=== PATIENT | female | born 1975 | race Hispanic/Latino ===

== ENCOUNTER → 2017-11-29 | Outpatient (CLI) | payer MEDICARE ==
[~2017-11-29] MED LIST: ACET-2247 PO; ATOR20TA65 PO; Aspirin PO; FERR324T10 PO; METF500T6 PO; OXYC5 PO; RANI300T4 PO
== END | disposition home or self-care (01) ==
LOC: RAH 11:04
PROVIDERS: ATTEND Orthopaedic Surgery
DX: M25.552 Pain in left hip (principal); Z96.642 Presence of left artificial hip joint
CPT/HCPCS: 73700

== ENCOUNTER → 2018-07-12 | Outpatient (CLI) | payer MEDICARE ==
[~2018-07-12] MED LIST changes: +METF-444 PO; -METF500T6 PO
== END | disposition home or self-care (01) ==
LOC: RAH 09:51
PROVIDERS: ATTEND Obstetrics & Gynecology
DX: Z12.31 Encounter for screening mammogram for malignant neoplasm of breast (principal)
CPT/HCPCS: 77067

== ENCOUNTER 2019-07-13 12:00 | Inpatient (IN) | payer MEDICARE ==
[~2019-07-13] VITALS: Ht 170.2 cm; Wt 98.0 kg
[2019-07-13 11:10] VITALS: BP 111/62
[2019-07-13 11:54] LABS: BASOPHILS % (AUTO) 0.6 % (0.0-5.0); EOSINOPHILS % (AUTO) 2.8 % (0.0-8.0); HEMATOCRIT 33.1 % (36-48); LYMPHOCYTES % (AUTO) 28.2 % (21.0-51.0); MEAN CORPUSCULAR HEMOGLOBIN 24.9 pg (27.0-33.0); MEAN CORPUSCULAR HGB CONC 32.7 g/dL (32.0-36.0); MEAN CORPUSCULAR VOLUME 76.1 fL (79-99); MONOCYTES % (AUTO) 6.8 % (3.0-13.0); NEUTROPHILS % (AUTO) 61.6 % (40.0-77.0); PLATELET COUNT (AUTO) 132 K/uL (130-400); RED BLOOD CELL COUNT(AUTO) 4.35 MIL/uL (4.00-5.50); RED CELL DISTRIBUTION WIDTH 15.2 % (11.0-15.5); WHITE BLOOD COUNT (AUTO) 7.1 K/uL (4.8-10.8)
[2019-07-13 11:54] LABS: APPEARANCE,URINE Clear (CLEAR); BILIRUBIN,URINE Negative (NEGATIVE); COLOR,URINE Yellow (YELLOW); GLUCOSE, URINE (UA) Negative (NEGATIVE); KETONES,URINE Negative (NEGATIVE); LEUKOCYTE ESTERASE ,URINE Negative (NEGATIVE); NITRATE,URINE Negative (NEGATIVE); OCCULT BLOOD,URINE Negative (NEGATIVE); PROTEIN,URINE Negative (NEGATIVE)
--- NOTE | 2019-07-13 12:40 | NUR ---
RE: PT TAKING NAPROXEN CALLED DR SEE OFFICE AND SPOKE WITH KHALIF. INFORMED HER THAT PATIENT IS STILL TAKING NAPROXEN AND PROCEDURE IS SCHEDULED FOR TUESDAY. PER KHALIF, SHE WILL INFORM THE NURSE (PAPI) AND SHE WILL CALL US.
[2019-07-13] MEDS ORDERED: LISI2.5T2 PO (12:51)
[2019-07-13] MEDS ORDERED: NAPR-337 PO (12:51)
[2019-07-13] MEDS ORDERED: OLOP2.5D6 OP (12:51)
[2019-07-13] MEDS ORDERED: tylenol arthritis PO (12:51)
[2019-07-13] MEDS ORDERED: OMEP40CA13 PO (12:51)
[2019-07-13] MEDS ORDERED: FLUT16H NASAL (12:51)
[2019-07-13] MEDS ORDERED: METF-526 PO (12:51)
[2019-07-13] MEDS ORDERED: SIMV40TA59 PO (12:51)
--- NOTE | 2019-07-13 13:30 | NUR ---
NAPROXEN PER DR SEE NURSE (PAPI), HAVE PATIENT STOP TAKING NAPROXEN AND WILL PROCEED WITH SCHEDULED PROCEDURE ON TUESDAY. DR SEE AWARE PATIENT TOOK NAPROXEN TODAY.
--- NOTE | 2019-07-13 17:58 | NUR ---
LABS INFORMED DR. SEE OF ABNORMAL H/H. ORDERS RECEIVED TO HAVE TYPE/SCREEN DRAWN ON DAY OF PROCEDURE.
[2019-07-16] VITALS (20 sets, daily range): BP systolic 102–125; BP diastolic 56–85
[2019-07-16] MEDS ORDERED: SODIUM CHLORIDE 0.9% 1000ML 1,000 ML IV ONE (10:20)
[2019-07-16] MEDS ORDERED: CEFAZOLIN SODIUM 1 GM VIAL ONE ×2 (10:20→16:13)
[2019-07-16] MEDS ORDERED: PROPOFOL 10 MG/ML 20ML VIAL IV ONE (15:05)
[2019-07-16] MEDS ORDERED: MIDAZOLAM HCL 1 MG/ML 2ML VIAL ONE (15:05)
[2019-07-16] MEDS ORDERED: ROCURONIUM 10MG/1ML SYR 10 MG/ML ML ONE (15:05)
[2019-07-16] MEDS ORDERED: LIDOCAINE PF 2% 5ML ABBOJECT ONE (15:05)
[2019-07-16] MEDS ORDERED: ONDANSETRON HCL 4 MG/2 ML VIAL ONE (15:07)
[2019-07-16] MEDS ORDERED: ROPIVACAINE 0.5% 5MG/ML 30ML IJ ONE (15:09)
[2019-07-16] MEDS ORDERED: KETAMINE 50MG/ML SYRINGE 50 MG/ML DISP.SYRIN IV ONE (15:09)
[2019-07-16] MEDS ORDERED: DEXAMETHASONE SOD PHOSPHATE 10MG/ML 1ML VIAL ONE (15:10)
[2019-07-16] MEDS: TRANEXAMIC ACID 1000MG/10ML IV ONE ×2 (16:00→19:05)
[2019-07-16] MEDS ORDERED: MEPERIDINE-PF 25 MG/ML SYG ONE ×2 (16:33→19:19)
[2019-07-16] MEDS ORDERED: NEOSTIGMINE 5MG/5ML SYR IV ONE (18:06)
[2019-07-16] MEDS ORDERED: GLYCOPYRROLATE 1 MG/5 ML SYRINGE ONE (18:07)
[2019-07-16] MEDS: SODIUM CHLORIDE 0.9% 1000ML 1,000 ML IV SCH ×2 (18:22→20:00)
[2019-07-16] MEDS ORDERED: LIDOCAINE HCL-MPF 1% 2ML VIAL IV PRN (18:30)
[2019-07-16] MEDS ORDERED: POTASSIUM CHLORIDE 10% ELIXIR 20 MEQ/15 ML UDCUP PO PRN (18:30)
[2019-07-16] MEDS ORDERED: DiphenhydrAMINE HCL 50 MG/ML VIAL IVP PRN (18:30)
[2019-07-16] MEDS ORDERED: CALCIUM CARBONATE 500 MG TABLET PO PRN (18:30)
[2019-07-16] MEDS ORDERED: FERROUS FUMARATE 324 MG TABLET PO PRN (18:30)
[2019-07-16] MEDS ORDERED: POTASSIUM CHLORIDE 20MEQ/100ML 100 ML IV PRN (18:30)
[2019-07-16] MEDS ORDERED: OXYCODONE HCL 5 MG TAB PO PRN (18:30)
[2019-07-16] MEDS ORDERED: ONDANSETRON HCL 4 MG/2 ML VIAL IVP PRN (18:30)
[2019-07-16] MEDS ORDERED: KETOROLAC TROMETHAMINE 15MG/ML IV PRN (18:30)
[2019-07-16] MEDS ORDERED: TEMAZEPAM 15 MG CAPSULE PO PRN (18:30)
[2019-07-16] MEDS ORDERED: POTASSIUM CHLORIDE 20 MEQ ERTAB PO PRN (18:30)
[2019-07-16] MEDS ORDERED: TRAMADOL HCL 50 MG TABLET PO PRN (18:30)
--- NOTE | 2019-07-16 19:12 | NUR ---
TRANEXAMIC ACID 1GM IVPB GIVEN IN PACU. Addendum: 07/16/19 at 1913 by ALESSANDRA HAYNES RN RN Amended: Links added.
[2019-07-16] MEDS ORDERED: KETOROLAC TROMETHAMINE 30MG/ML ONE (19:20)
--- NOTE | 2019-07-16 19:52 | NUR ---
TRANSFER FROM PACU PT TRANSFERRED FROM PACU AWAKE, ALERT AND RESPONSIVE. DRESSING TO LEFT HIP DRY AND INTACT. FAMILY MEMBERS AT BEDSIDE, CALL NUNEZ WITHIN REACH, BED IN LOWEST POSITION. Addendum: 07/16/19 at 2234 by NICKIE REYNOLDS RN Amended: Links added.
[2019-07-16] MEDS ORDERED: FAMOTIDINE 20MG TAB 20 MG TAB PO SCH (21:00)
[2019-07-16] MEDS: CELECOXIB 200 MG CAP PO SCH (21:38)
[2019-07-16] MEDS: ASPIRIN 325 MG TABLET PO SCH (21:38)
[2019-07-16] MEDS: ACETAMINOPHEN EXTRA STRENGTH 500 MG TABLET PO SCH (21:39)
[2019-07-16] MEDS: PREGABALIN 25 MG CAP PO SCH (21:39)
[2019-07-16] MEDS ORDERED: SIMVASTATIN 20 MG TABLET ONE (21:48)
[2019-07-16] MEDS ORDERED: LISINOPRIL 2.5 MG TABLET ONE (21:48)
[2019-07-16] MEDS: LISINOPRIL 2.5 MG TABLET PO SCH (22:15)
[2019-07-16] MEDS: CEFAZOLIN SODIUM 1 GM VIAL IVP SCH (23:41)
[2019-07-17 00:18] VITALS: BP 107/61
[2019-07-17] MEDS: OXYCODONE HCL 5 MG TAB PO PRN ×2 (00:32→19:37)
[2019-07-17] MEDS: ACETAMINOPHEN EXTRA STRENGTH 500 MG TABLET PO SCH ×3 (02:30→17:36)
[2019-07-17 04:21] VITALS: BP 95/52
[2019-07-17] MEDS: SODIUM CHLORIDE 0.9% 1000ML 1,000 ML IV SCH ×2 (04:22→12:11)
[2019-07-17 05:12] LABS: HEMATOCRIT 28.7 % (36-48); MEAN CORPUSCULAR HEMOGLOBIN 24.4 pg (27.0-33.0); MEAN CORPUSCULAR VOLUME 76.3 fL (79-99); PLATELET COUNT (AUTO) 163 K/uL (130-400); RED BLOOD CELL COUNT(AUTO) 3.76 MIL/uL (4.00-5.50); RED CELL DISTRIBUTION WIDTH 14.9 % (11.0-15.5); WHITE BLOOD COUNT (AUTO) 12.4 K/uL (4.8-10.8)
[2019-07-17] MEDS: CEFAZOLIN SODIUM 1 GM VIAL IVP SCH (07:00)
[2019-07-17] MEDS ORDERED: GLUCAGON 1MG KIT 1 MG ML IM PRN (08:00)
[2019-07-17] MEDS ORDERED: DEXTROSE 50%-WATER 50 ML DISP.SYRIN IV PRN (08:00)
[2019-07-17 08:38] VITALS: BP 101/52
[2019-07-17] MEDS: ASPIRIN 325 MG TABLET PO SCH ×2 (08:53→19:34)
[2019-07-17] MEDS: METFORMIN HCL 500 MG TAB.SR.24H PO SCH ×3 (08:53→19:34)
[2019-07-17] MEDS: CELECOXIB 200 MG CAP PO SCH ×2 (08:53→19:34)
[2019-07-17] MEDS: POLYETHYLENE GLYCOL 3350 17 GM POWD.PACK PO SCH (08:54)
[2019-07-17] MEDS: PREGABALIN 25 MG CAP PO SCH ×2 (08:54→19:34)
[2019-07-17] MEDS: FLUTICASONE PROPIONATE 50MCG/SPRAY 16 GM BOTTLE EN SCH (09:00)
[2019-07-17 09:23] LABS: HEMOGLOBIN A1C 7.1 % (4.0-6.0)
--- NOTE | 2019-07-17 11:00 | NUR ---
INITIAL AND REFERRAL MET W PT WITH FATHER A BEDSIDE, PT LIVES Raj SISTER, WHO WILL PROVIDE TRANSPORT HOME SAFE AND ACCESSIBLE, WILL NEED PROVIDER SERVICE ON DISCHARGE, HAS WALKER - DISCUSS HOME HEALTH- WILL SEND REFERRAL TO [facility] , INFORMED [facility] O THAT PT ALSO REQUESTING PROVIDER SERVICES, STATES THEY WOULD HELP WITH THAT WELL/ RAGHAV/ CHOIC FOR [facility] Addendum: 07/18/19 at 1942 by STEVEN LEZAMA RN CM Amended: Links added. Addendum: 07/18/19 at 1948 by STEVEN LEZAMA RN CM ERROR--- MARLON GUERRERO. UNSURE WHO WILL PORVIDE TRANSPORT ON DAY OF DISCHARGE. PT ALSO STATED SHE REALLY WANTS TO GO TO [facility] PATIENT THERAPY. ASKED PT TO RECONSIDER AND STAY WITH HOME HEALTH UNTIL SEEN BY DR. SEE AT FOLLOW UP APPOINTMENT. PT AGREED
[2019-07-17] MEDS: INSULIN HUMULIN R 100 UNIT/ML 3ML SQ SCH ×3 (11:30→21:00)
[2019-07-17 11:31] VITALS: BP 102/46
[2019-07-17] MEDS: PANTOPRAZOLE SODIUM 40 MG TABLET.DR PO SCH (12:12)
[2019-07-17 16:05] VITALS: BP 113/53
[2019-07-17] MEDS ORDERED: HYDR-4457 PO (17:41)
[2019-07-17] MEDS ORDERED: ASPI-1012 PO (17:41)
[2019-07-17] MEDS ORDERED: FERR324T10 PO (17:41)
[2019-07-17] MEDS: LISINOPRIL 2.5 MG TABLET PO SCH (19:34)
[2019-07-17 20:09] VITALS: BP 97/60
[2019-07-17] MEDS ORDERED: SIMVASTATIN 20 MG TABLET PO SCH (21:00)
[2019-07-17] MEDS ORDERED: OLOPATADINE EYE OP SCH (21:00)
[2019-07-18 00:18] VITALS: BP 97/43
[2019-07-18] MEDS: ACETAMINOPHEN EXTRA STRENGTH 500 MG TABLET PO SCH ×3 (02:29→16:07)
[2019-07-18 04:18] VITALS: BP 97/61
[2019-07-18] MEDS: INSULIN HUMULIN R 100 UNIT/ML 3ML SQ SCH ×3 (05:52→16:30)
[2019-07-18 08:01] VITALS: BP 106/57
[2019-07-18] MEDS: FLUTICASONE PROPIONATE 50MCG/SPRAY 16 GM BOTTLE EN SCH (09:00)
[2019-07-18] MEDS: POLYETHYLENE GLYCOL 3350 17 GM POWD.PACK PO SCH (09:00)
[2019-07-18] MEDS: PANTOPRAZOLE SODIUM 40 MG TABLET.DR PO SCH (09:36)
[2019-07-18] MEDS: PREGABALIN 25 MG CAP PO SCH (09:36)
[2019-07-18] MEDS: CELECOXIB 200 MG CAP PO SCH (09:36)
[2019-07-18] MEDS: METFORMIN HCL 500 MG TAB.SR.24H PO SCH (09:36)
[2019-07-18] MEDS: ASPIRIN 325 MG TABLET PO SCH (09:37)
[2019-07-18 11:24] VITALS: BP 104/62
--- NOTE | 2019-07-18 15:06 | NUR ---
DISCHARGE INSTRUCTIONS GIVEN AND EXPLAINED UTILIZING TEACH BACK METHOD. PT/FAMILY VERBALIZED UNDERSTANDING. DISCHARGE TO [facility]. REPORT GIVEN TO LASHAE GONG LVN. CALL [phone] FOR ANY CONCERNS. FOLLOW UP WITH DR. SEE ON 08/08/19 @8:30 A.M. CALL OFFICE FOR ANY CONCERNS 02/05 AT [phone]. PLEASE TAKE PRESCRIPTION MEDICATIONS INSTRUCTED. IF YOU NEED A PRESCRIPTION REFILL ON YOUR PAIN MEDICATIONS, PLEASE CALL OFFICE A FEW DAYS BEFORE YOU TAKE YOUR LAST PAIN PILL. RESUME YOUR PREVIOUS HOME DIET. RESUME YOUR PREVIOUS HOME MEDICATIONS IF ANY INSTRUCTED BY STAFF. NURSE TO REMOVE DRESSING DAILY UNTIL HEALED. CONTINUE DAILY DRESSING CHANGES IF NEEDED AFTER 1ST REMOVAL. AMBULATE TOLERATED WITH USE OF CRUTCHES OR WALKER UNTIL YOU'RE ABLE TO WALK INDEPENDENTLY. NO CITLALLI HOSE NEEDED. FOLLOW PHYSICAL THERAPISTS RECOMMENDATIONS/INSTRUCTIONS. GAIT TRAINING WITH WALKER AND WEIGHT BEARING TOLERATED ADVANCE TO CANE PER NURSE/THERAPIST DISCRETION. DO QUADRICEPS/ABDUCTOR STRENGTHENING EXERCISES TO OPERATIVE LEG. MODALITIES PER PHYSICAL THERAPIST DISCRETION. POSTERIOR HIP PRECAUTIONS. ACTIVE AND ACTIVE ASSISTED ROM EXERCISES OF OPERATED HIP. CALL 250 OR GO TO EMERGENCY ROOM IF YOU HAVE ANY CHEST PAIN/DISCOMFORT, SHORTNESS OF BREATH/DIFFICULTY BREATHING OR NEEDED.
[2019-07-19] MEDS ORDERED: FLUTICASONE PROPIONATE 50MCG/SPRAY 16 GM BOTTLE EN SCH (09:00)
[2019-07-19] MEDS ORDERED: BISACODYL 10 MG SUPP.RECT RC PRN (18:30)
== END 2019-07-18 18:02 | disposition home health service (06) | DRG 468 ==
LOC: EDSTATUS 12:00 → DAHIP 07-16 10:08 → 4AH 07-16 19:53
PROVIDERS: ADMIT Orthopaedic Surgery; ATTEND Orthopaedic Surgery
PROC: 0RSKXZZ Reposition Left Shoulder Joint, External Approach (ICD-10-PCS; 2019-07-16)
PROC: 0SUE09Z Supplement Left Hip Joint, Acetabular Surface with Liner, Open Approach (ICD-10-PCS; 2019-07-16)
PROC: 0SRS03Z Replacement of Left Hip Joint, Femoral Surface with Ceramic Synthetic Substitute, Open Approach (ICD-10-PCS; principal; 2019-07-16 12:40)
PROC: 0SPS0JZ Removal of Synthetic Substitute from Left Hip Joint, Femoral Surface, Open Approach (ICD-10-PCS; 2019-07-16 12:40)
PROC: 0SPB09Z Removal of Liner from Left Hip Joint, Open Approach (ICD-10-PCS; 2019-07-16 12:40)
DX: T84.84XA Pain due to internal orthopedic prosthetic devices, implants and grafts, initial encounter (principal); M21.752 Unequal limb length (acquired), left femur; G89.29 Other chronic pain; Z96.642 Presence of left artificial hip joint; K21.9 Gastro-esophageal reflux disease without esophagitis; E11.9 Type 2 diabetes mellitus without complications; E78.00 Pure hypercholesterolemia, unspecified; M75.82 Other shoulder lesions, left shoulder; Y83.8 Other surgical procedures as the cause of abnormal reaction of the patient, or of later complication, without mention of misadventure at the time of the procedure; Z79.82 Long term (current) use of aspirin; Z79.899 Other long term (current) drug therapy; Z98.891 History of uterine scar from previous surgery; Z98.51 Tubal ligation status; Z82.3 Family history of stroke; Y92.89 Other specified places as the place of occurrence of the external cause
CPT/HCPCS: 36415; 73503; 81003; 82948; 83036; 85025; 85027; 86850; 86900; 86901; 87641; 88300; 88304; 88311; 97039; G0378; J0690; J1100; J1815; J1885; J2001; J2175; J2250; J2405; J2704; J2710; J2795; J3490; J7030

== ENCOUNTER → 2021-04-10 | Outpatient (CLI) | payer MEDICARE ==
[~2021-04-10] MED LIST changes: -ACET-2247 PO; +ASPI-1012 PO; -ATOR20TA65 PO; -Aspirin PO; +FLUT16H NASAL; +HYDR-4457 PO; +LISI2.5T2 PO; -METF-444 PO; +METF-526 PO; +NAPR-337 PO; +OLOP2.5D16 OP; +OMEP40CA21 PO; -OXYC5 PO; -RANI300T4 PO; +SIMV40TA59 PO; +tylenol arthritis PO
== END | disposition home or self-care (01) ==
LOC: RAH 14:11
PROVIDERS: ATTEND Family Medicine
DX: Z12.31 Encounter for screening mammogram for malignant neoplasm of breast (principal)
CPT/HCPCS: 77067

== ENCOUNTER → 2021-06-04 | Outpatient (CLI) | payer MEDICARE ==
[~2021-06-04] MED LIST changes: +LISI2.5T13 PO; -LISI2.5T2 PO
== END | disposition home or self-care (01) ==
LOC: RAH 11:18
PROVIDERS: ATTEND Obstetrics & Gynecology
DX: N83.202 Unspecified ovarian cyst, left side (principal)
CPT/HCPCS: 76830

== ENCOUNTER → 2022-05-31 | Outpatient (CLI) | payer OTHER | END | disposition home or self-care (01) | LOC: RAH 11:09 | PROVIDERS: ATTEND Family Medicine | DX: Z01.818 Encounter for other preprocedural examination (principal); N83.209 Unspecified ovarian cyst, unspecified side | CPT/HCPCS: 71045 ==

== ENCOUNTER 2023-07-29 19:36 | Emergency (ER) | payer OTHER ==
[~2023-07-29] VITALS: Ht 170.2 cm; Wt 95.3 kg
[2023-07-29 20:42] LABS: POTASSIUM 4.1 mmol/L (3.5-5.1)
[2023-07-29 20:44] LABS: BASOPHILS # (AUTO) 0.04 K/uL (0.00-0.20); BASOPHILS % (AUTO) 0.5 % (0.0-5.0); EOSINOPHILS # (AUTO) 0.15 K/uL (0.00-0.70); EOSINOPHILS % (AUTO) 1.8 % (0.0-8.0); HEMATOCRIT 36.6 % (36-48); IMMATURE GRANULOCYTE ABSOLUTE 0.03 K/uL (0-1); LYMPHOCYTES # (AUTO) 2.8 K/uL (1.0-4.8); MEAN CORPUSCULAR HEMOGLOBIN 27.3 pg (27.0-33.0); MEAN CORPUSCULAR HGB CONC 32.8 g/dL (32.0-36.0); MEAN CORPUSCULAR VOLUME 83.4 fL (79-99); MONOCYTES # (AUTO) 0.4 K/uL (0.1-1.0); MONOCYTES % (AUTO) 5.2 % (3.0-13.0); NEUTROPHILS # (AUTO) 4.8 K/uL (1.8-7.7); NEUTROPHILS % (AUTO) 58.1 % (40.0-77.0); PLATELET COUNT (AUTO) 152 K/uL (130-400); RED BLOOD CELL COUNT(AUTO) 4.39 MIL/uL (4.00-5.50); WHITE BLOOD COUNT (AUTO) 8.3 K/uL (4.8-10.8)
[2023-07-29 20:47] LABS: ADD UA MICROSCOPIC YES; APPEARANCE,URINE CLEAR (CLEAR); BILIRUBIN,URINE NEGATIVE (NEGATIVE); COLOR,URINE LIGHT-YELLOW (YELLOW); GLUCOSE, URINE (UA) >=1000 mg/dL (NEGATIVE); KETONES,URINE NEGATIVE (NEGATIVE); LEUKOCYTE ESTERASE ,URINE NEGATIVE Leu/uL (NEGATIVE); NITRATE,URINE NEGATIVE (NEGATIVE); OCCULT BLOOD,URINE NEGATIVE (NEGATIVE); PH,URINE 5.5 (5.0-8.0); PROTEIN,URINE NEGATIVE (NEGATIVE); UROBILINOGEN,URINE 0.2 mg/dL (0.2-1.0)
[2023-07-29 20:49] LABS: MUCUS,URINE RARE LPF (None Seen); RBC,URINE 0-1 /HPF (0-1); SQUAMOUS EPITHELIAL CELL,UR RARE /HPF (0-2)
[2023-07-29 21:01] LABS: ALBUMIN 3.6 g/dL (3.5-5.0); BILIRUBIN,TOTAL 0.2 mg/dL (0.2-1.0); TOTAL PROTEIN, SERUM 7.1 g/dL (6.0-8.3)
[2023-07-29 21:43] VITALS: BP 113/66; PULSE 87; RESP 20; O2SAT 97
[2023-07-29] MEDS ORDERED: ACET-2079 PO (21:44)
== END 2023-07-29 21:51 | disposition home or self-care (01) ==
LOC: EDH 19:36
DX: R07.89 Other chest pain (principal); R10.12 Left upper quadrant pain; E11.9 Type 2 diabetes mellitus without complications; E78.00 Pure hypercholesterolemia, unspecified; K21.9 Gastro-esophageal reflux disease without esophagitis; Z79.82 Long term (current) use of aspirin; Z79.84 Long term (current) use of oral hypoglycemic drugs; Z79.899 Other long term (current) drug therapy; Z90.710 Acquired absence of both cervix and uterus; Z98.890 Other specified postprocedural states
CPT/HCPCS: 36415; 71045; 80053; 81001; 82150; 83690; 84484; 85025; 93005

== ENCOUNTER → 2023-09-15 | Outpatient (CLI) | payer OTHER ==
[~2023-09-15] MED LIST changes: +ACET-2079 PO
== END | disposition home or self-care (01) ==
LOC: RAH 14:12
PROVIDERS: ATTEND Family Medicine
DX: Z12.31 Encounter for screening mammogram for malignant neoplasm of breast (principal)
CPT/HCPCS: 77067

== ENCOUNTER → 2024-05-23 | Outpatient (CLI) | payer OTHER | END | disposition home or self-care (01) | LOC: RAH 15:29 | PROVIDERS: ATTEND Family Medicine | DX: R10.2 Pelvic and perineal pain (principal); Z90.710 Acquired absence of both cervix and uterus | CPT/HCPCS: 76856 ==

== ENCOUNTER → 2024-07-03 | Outpatient (CLI) | payer OTHER ==
[~2024-07-03] MED LIST changes: +IOHEXOL-350 75 ML VIAL IV ONE
== END | disposition home or self-care (01) ==
LOC: RAH 06-18 08:53
PROVIDERS: ATTEND Family Medicine
DX: N32.89 Other specified disorders of bladder (principal); K57.30 Diverticulosis of large intestine without perforation or abscess without bleeding; I70.90 Unspecified atherosclerosis; R10.2 Pelvic and perineal pain
CPT/HCPCS: 72193; Q9967

== ENCOUNTER → 2024-08-06 | Outpatient (CLI) | payer OTHER ==
[~2024-08-06] MED LIST changes: -IOHEXOL-350 75 ML VIAL IV ONE
== END | disposition home or self-care (01) ==
LOC: LAB 13:19
PROVIDERS: ATTEND Otolaryngology Plastic Surgery within the Head & Neck
DX: H90.3 Sensorineural hearing loss, bilateral (principal)
CPT/HCPCS: 36415; 82565; 84520

== ENCOUNTER → 2024-08-08 | Outpatient (CLI) | payer OTHER ==
[~2024-08-08] MED LIST changes: +GADOTERATE MEGLUMINE 10 MMOL/20 ML VIAL IV ONE
== END | disposition home or self-care (01) ==
LOC: RAH 08:50
PROVIDERS: ATTEND Otolaryngology Plastic Surgery within the Head & Neck
DX: H90.3 Sensorineural hearing loss, bilateral (principal)
CPT/HCPCS: 70553; A9575

== ENCOUNTER → 2024-09-25 | Outpatient (CLI) | payer OTHER ==
[~2024-09-25] MED LIST changes: -GADOTERATE MEGLUMINE 10 MMOL/20 ML VIAL IV ONE
--- NOTE | 2024-09-25 10:42 | HMCIMG ---
MAMMO SCREENING BILATERAL HISTORY: Screening mammogram. COMPARISON: 09/15/2023 TECHNIQUE: Bilateral screening mammogram with CAD was performed with craniocaudal and mediolateral oblique projections. FINDINGS: There are scattered areas of fibroglandular density. There is no evidence of a dominant mass, or suspicious microcalcification. There is no evidence of nipple retraction or skin thickening. IMPRESSION: 1. Stable mammogram. Patient was entered into a reminder system with a target due date for their next mammogram. BI-RADS: CATEGORY 2: BENIGN FINDINGS Recommend monthly self breast exam as well as annual clinical examination. A negative x-ray should not delay biopsy if a dominant or clinically suspicious mass is present, since 8-10% of cancers are not identified by mammography. Dense breasts particularly, may obscure an underlying neoplasm. Some of these may be detected clinically and therefore, clinical examination is an essential part of breast evaluation.
== END | disposition home or self-care (01) ==
LOC: RAH 09:39
PROVIDERS: ATTEND Family Medicine
DX: Z12.31 Encounter for screening mammogram for malignant neoplasm of breast (principal); R92.323 Mammographic fibroglandular density, bilateral breasts
CPT/HCPCS: 77067

== ENCOUNTER 2024-11-16 03:49 | Emergency (ER) | payer OTHER ==
[~2024-11-16] VITALS: Ht 170.2 cm; Wt 95.3 kg
--- NOTE | 2024-11-16 03:53 | NUR ---
UA CUP PROVIDED
--- NOTE | 2024-11-16 04:12 | ERN ---
ED Note History of Present Illness Stated Complaint: BACK/ABD PAIN Chief Complaint: Multiple Complaints Time Seen by MD: 03:51 Dictation: This is a 48-year-old female who presented to the emergency room with complaints of severe right lower back pain radiating to the front to the right lower quadrant. This started a few days ago but became excruciating today and she came into the ER for further evaluation. A couple of days ago she said that she had frequency and had an episode of incontinence of the urine so she assumed that she had a UTI. Not seek medical attention for that. No hematuria fever chills or rigors. The pain does not radiate to the gluteal area or the leg. She denied any bowel incontinence she just had a bowel movement prior to coming to the ER She did admit to moving some furniture but not lifting any heavy weights. Temperature 97.4 pulse 78 respirations 20 blood pressure 108/67 with a pulse oximetry of 100% on room air Her chronic medical problems include diabetes mellitus gastroesophageal reflux disease, hypercholesterolemia chronic anemia and multiple left hip surgeries. No she had hysterectomy Allergies: Coded Allergies: No Known Drug Allergies (Verified Allergy, Unknown, 04/13/16) hydrocodone (Unverified Allergy, Unknown, 07/29/23) tramadol (Unverified Allergy, Unknown, 07/13/19) Home Meds Active Scripts Acetaminophen with Codeine (Acetaminophen-Cod #3 Tablet) 300 Mg-30 Mg Tablet, 1 TAB PO Q6H, #30 TAB Prov:SYDNEY JULIAN MD 07/29/23 Hydrocodone/Acetaminophen ([place] 5-325 Tablet) 1 Each Tablet, 1-2 EACH PO Q6HPRN PRN for PAIN, #60 TAB Prov:CORNEL SEE MD 07/17/19 Ferrous Fumarate (Hemocyte) 324 Mg Tablet, 324 MG PO DAILY, #30 TAB Prov:CORNEL SEE MD 07/17/19 Aspirin (ASPIRIN) 325 Mg Tablet, 325 MG PO BID, #40 TAB Prov:CORNEL SEE MD 07/17/19 Reported Medications Olopatadine HCl (Olopatadine HCl) 2.5 Ml Drops, 2.5 ML OP HS, DROP 07/13/19 Fluticasone Propionate (Flonase Nasal [place]) 50 Mcg/[place], 50 MCG NASAL DAILY, SPRAY 07/13/19 Naproxen Sodium (Naproxen Sodium ER) 500 Mg Tbmp.24hr, 500 MG PO BID PRN for PAIN LEVEL 6 TO 10, TAB.SR 07/13/19 Omeprazole (Omeprazole) 40 Mg Capsule.dr, 40 MG PO DAILY, CAP 07/13/19 Simvastatin (ZOCOR) 40 Mg Tablet, 40 MG PO HS, TAB 07/13/19 Lisinopril (Lisinopril) 2.5 Mg Tablet, 2.5 MG PO HS, TAB 07/13/19 [tylenol arthritis] No Conflict Check, 650 MG PO BID 07/13/19 Metformin HCl (Metformin HCl ER) 500 Mg Tab.er.24, 1000 MG PO BID 07/13/19 Past Medical History Past Medical History: Anemia, Diabetes-Type II, GERD, High Cholesterol Surgical History: Hysterectomy, Other, Surgical History Other: LEFT HIP X 3, RT OVARY Social History: Negative, Lives with family History: Not Applicable RN Note Reviewed/Agreed w/PFSH: Yes Review of System Dictation Constitutional: Negative for fever,chills, and weight loss Eyes: Negative for injury, pain,redness, and discharge ENT: Negative for injury,pain or swelling Cardiovascular: Negative for chest pain, palpitations, and edema Respiratory: Negative for shortness of breath, cough, and wheezing, Abdomen/GI: Negative for abdominal pain, nausea, vomiting, diarrhea, and cons tipation Back: Negative for injury and pain positive for symptoms as described in the history of present illness : Negative for injury, bleeding and discharge MS/Extremity: Negative for injury and deformity Skin: Negative for rash, and discoloration Neuro: Negative for headache, weakness, numbness, tingling, and seizure Psych: Negative for suicide ideation, homicidal ideation, and hallucinations Initial Vital Sign VS Vital Signs Date Time Temp Pulse Resp B/P (MAP) Pulse Ox O2 Delivery O2 Flow Rate FiO2 11/16/24 03:50 97.3 78 20 108/67 100 11/16/24 04:37 Room Air* 0 21 Physical Exam Dictation General: awake, alert, NAD overweight uncomfortable Head/Face: Normocephalic, atraumatic Eyes: PERRL, EOMI, vision at baseline ENT: oral cavity clear, TMs clear, no signs of infection Neck: Trachea midline, supple, no nuchal rigidity Cardiovascular: RRR, normal S1/S2, No MRGs, no JVD Respiratory: CTAB, no respiratory distress, No rales or wheezes Abdomen: Soft, non-tender, non-distended, normal bowel sounds, no guarding or rebound. Tenderness in the right flank area Skin: Warm, dry, normal turgor, no rash MS/Extremity: Pulses equal, no cyanosis, neurovascular intact, FROM Neuro: COAx4, GCS 15, strength 5/5, CN 2-12 intact, normal cerebellar exam, normal gait, Psych: Normal behavior, mood, and affect normal Extremities-trace edema without any palpable cords, Homans sign is negative Results (Laboratory/Radiology) Laboratory/Radiology Laboratory Tests Test 11/16/24 04:20 11/16/24 06:11 White Blood Count 8.3 K/uL (4.8-10.8) Red Blood Count 4.34 MIL/uL (4.00-5.50) Hemoglobin 11.7 g/dL (12.0-16.0) L Hematocrit 36.5 % (36-48) Mean Corpuscular Volume 84.1 fL (79-99) Mean Corpuscular Hemoglobin 27.0 pg (27.0-33.0) Mean Corpuscular Hemoglobin Concent 32.1 g/dL (32.0-36.0) Red Cell Distribution Width 13.1 % (11.0-15.5) Platelet Count 257 K/uL (130-400) Mean Platelet Volume 10.9 fL (7.5-10.5) H Immature Granulocyte % (Auto) 0.5 % (0-1) Neutrophils (%) (Auto) 68.0 % (40.0-77.0) Lymphocytes (%) (Auto) 21.6 % (21.0-51.0) Monocytes (%) (Auto) 7.3 % (3.0-13.0) Eosinophils (%) (Auto) 2.2 % (0.0-8.0) Basophils (%) (Auto) 0.4 % (0.0-5.0) Neutrophils # (Auto) 5.6 K/uL (1.8-7.7) Lymphocytes # (Auto) 1.8 K/uL (1.0-4.8) Monocytes # (Auto) 0.6 K/uL (0.1-1.0) Eosinophils # (Auto) 0.18 K/uL (0.00-0.70) Basophils # (Auto) 0.03 K/uL (0.00-0.20) Absolute Immature Granulocyte (auto 0.04 K/uL (0-1) Nucleated Red Blood Cells 0.0 % (0.0-0.19) Sodium Level 137 mmol/L (136-145) Potassium Level 4.2 mmol/L (3.5-5.1) Chloride Level 102 mmol/L (101-111) Carbon Dioxide Level 28 mmol/L (21-32) Blood Urea Nitrogen 22 mg/dL (7-18) H Creatinine 1.1 mg/dL (0.5-1.0) H Glomerular Filtration Rate Calc 61 mL/min (>90) Random Glucose 182 mg/dL (70-105) H Total Calcium 9.3 mg/dL (8.5-10.1) Urine Color YELLOW (YELLOW) Urine Appearance TURBID (CLEAR) Urine pH 6.0 (5.0-8.0) Urine Specific [place] 1.016 (1.001-1.031) Urine Protein 100 mg/dL (NEGATIVE) H Urine Glucose (UA) NEGATIVE mg/dL (NEGATIVE) Urine Ketones NEGATIVE mg/dL (NEGATIVE) Urine Occult Blood MODERATE (NEGATIVE) H Urine Nitrate NEGATIVE (NEGATIVE) Urine Bilirubin NEGATIVE mg/dL (NEGATIVE) Urine Urobilinogen 0.2 mg/dL (0.2-1.0) Urine Leukocyte Esterase 500 [place]/uL (NEGATIVE) H Labs Reviewed?: Yes ED Course ED Course Orders Procedure Category Date Status Time Urinalysis Profile LAB 11/16/24 In Process 04:00 Cbc With Differential LAB 11/16/24 Complete 04:07 Ketorolac PHA 11/16/24 Complete Tromethamine 30mg/Ml 04:30 Hydromorphone 1 Mg PHA 11/16/24 Complete Inj (Dilaudid 1mg Inj 04:30 Ondansetron 4mg Inj PHA 11/16/24 Complete (Zofran 4mg Inj) 04:30 Basic Metabolic Panel LAB 11/16/24 Complete 04:07 Culture Urine ELDON 11/16/24 In Process 06:42 Current Medications Medications (Trade) Dose Ordered Sig/Marcel Route PRN Reason Start Time Stop Time Status Last Admin Dose Admin Hydromorphone HCl (DiLAUDid 1MG INJ) 1 mg ONCE ONCE IVP 11/16/24 04:30 11/16/24 04:31 DC 11/16/24 04:22 Ketorolac Tromethamine (toRADol) 30 mg ONCE ONCE IVP 11/16/24 04:30 11/16/24 04:31 DC 11/16/24 04:23 Ondansetron HCl (zoFRAN 4MG INJ) 4 mg ONCE ONCE IVP 11/16/24 04:30 11/16/24 04:31 DC 11/16/24 04:22 Vital Signs Date Time Temp Pulse Resp B/P (MAP) Pulse Ox O2 Delivery O2 Flow Rate FiO2 11/16/24 06:32 98.1 75 18 136/62 100 Room Air* 0 21 11/16/24 04:37 98.1 78 18 135/65 99 Room Air* 0 21 11/16/24 03:50 97.3 78 20 108/67 100 We will perform diagnostic labs, advanced imaging and administer medications according to the patient's complaint. Once the results are available, will review and personally interpreted the labs to rule out any acute life- threatening emergency the trach require immediate intervention and treatment. I will then re-evaluate the patient after treatment and diagnostic exams have return to determine whether the patient requires any further testing, can safely be discharged home or need further admission to hospital for additional treatment and evaluation. Labs reviewed CBC is with a normal limits except for hemoglobin of 11.7 BNP 7 showed BUN and creatinine of 22 and 1.1 with a glucose of 182 Urinalysis requested which is still pending at this time 6:53 a.m.-urinalysis is abnormal with positive leuko esterase and WBCs suggestive of UTI I updated the patient and spouse and she feels amazing the pain is resolved and we will discharge her on a short course of steroid for the lower back and an antibiotic Medical Decision Making MDM MDM: Differential diagnosis: Lower back pain-possible lumbar radiculopathy, nephrolithiasis, psoas muscle spasm, pyelonephritis Rationale: Tests considered and ordered secondary to shared decision making include: Previous outside records reviewed: Old ER visits. Risk of complication and/or morbidity or mortality of patient management: None Medications-Per medication reconciliation Need for hospitalization: Patient does not meet criteria for hospitalization. Need for emergency major/minor surgery: No There are no social concerns with this patient. Prescription drug management Prescriptions will include symptomatic care Patient's prior external medical records from other ER visits were reviewed by me as indicated. Prior testing and results from previous visits were reviewed. Prior tests were taken into account with medical decision making and resource utilization, independent historian/historians were used to obtain complete medical history. I independently interpreted the test that were performed, results were reviewed by me and considered findings on radiology if ordered. Medical management and examination interpretation discussions were had by me with other qualified healthcare professionals as indicated for the patient's care. DX & DISP Disposition: Discharge Departure Impression: Primary Impression: Radiculopathy due to disorder of intervertebral disc of lumbosacral spine Additional Impression: UTI (urinary tract infection) Condition: Stable Scripts Nitrofurantoin Monohyd/M-Cryst (Macrobid 100 mg Capsule) 100 Mg Capsule 1 CAP PO BID for 7 Days, #14 CAP 0 Refills Prov: JOSE OCHOA MD 11/16/24 Prednisone (Prednisone) 20 Mg Tablet 1 TAB PO AD for 6 Days, #14 TAB 0 Refills TAKE 1 TAB BY MOUTH THREE TIMES PER DAY X3 DAYS, THEN TAKE 1 TAB BY MOUTH TWICE A DAY X2 DAYS, THEN TAKE 1 TAB BY MOUTH ONCE A DAY X1 DAY. Prov: JOSE OCHOA MD 11/16/24 Additional Instructions: Patient and the caregiver have been informed of all the diagnostic tests and the imaging conducted during the today's visit to the emergency room and has verbalized understanding of the results I have personally reviewed and interpreted all diagnostic exams performed here in the ER today as well as the vital signs documented by the nursing staff. The patient is now being dischar ged to home and should follow up with the primary care physician or the specialist as directed by the ER staff. Follow-up with primary care provider in 1 to 2 days. Take medications as directed here in the emergency room. Okay to continue home medications unless otherwise discussed during your visit in the emergency room today. Return to your nearest emergency room if symptoms worsen or if there is no improvement. Call 911 if you need immediate assistance. Take Tylenol or Motrin [id number] as needed and if no contraindications are present. Increase oral hydration. A wound culture or urine culture was ordered here in the emergency room department please follow-up with primary care provider and advise them to get repeat ports from our facility. If you had any Shai wrap/splints that were applied here, please do not remove them until you see your primary care or specialty. Referrals: ASHWIN ALVARADO (PCP) JOSE OCHOA MD Nov 16, 2024 04:12
[2024-11-16] MEDS: hydroMORPHone 1 MG INJ IVP ONE (04:22)
[2024-11-16] MEDS: ondanSETRON 4MG INJ IVP ONE (04:22)
[2024-11-16] MEDS: ketOROlac 30MG VIAL (30MG/ML) IVP ONE (04:23)
[2024-11-16 04:27] LABS: BASOPHILS # (AUTO) 0.03 K/uL (0.00-0.20); BASOPHILS % (AUTO) 0.4 % (0.0-5.0); EOSINOPHILS # (AUTO) 0.18 K/uL (0.00-0.70); EOSINOPHILS % (AUTO) 2.2 % (0.0-8.0); HEMATOCRIT 36.5 % (36-48); IMMATURE GRANULOCYTE ABSOLUTE 0.04 K/uL (0-1); LYMPHOCYTES # (AUTO) 1.8 K/uL (1.0-4.8); LYMPHOCYTES % (AUTO) 21.6 % (21.0-51.0); MEAN CORPUSCULAR HGB CONC 32.1 g/dL (32.0-36.0); MEAN CORPUSCULAR VOLUME 84.1 fL (79-99); MONOCYTES # (AUTO) 0.6 K/uL (0.1-1.0); MONOCYTES % (AUTO) 7.3 % (3.0-13.0); NEUTROPHILS # (AUTO) 5.6 K/uL (1.8-7.7); PLATELET COUNT (AUTO) 257 K/uL (130-400); RED BLOOD CELL COUNT(AUTO) 4.34 MIL/uL (4.00-5.50); RED CELL DISTRIBUTION WIDTH 13.1 % (11.0-15.5); WHITE BLOOD COUNT (AUTO) 8.3 K/uL (4.8-10.8)
[2024-11-16 04:39] LABS: CREATININE 1.1 mg/dL (0.5-1.0); POTASSIUM 4.2 mmol/L (3.5-5.1)
[2024-11-16 06:32] VITALS: BP 136/62; PULSE 75; RESP 18; TEMP 98.1; O2SAT 100
[2024-11-16 06:37] LABS: APPEARANCE,URINE TURBID (CLEAR); BILIRUBIN,URINE NEGATIVE (NEGATIVE); GLUCOSE, URINE (UA) NEGATIVE (NEGATIVE); KETONES,URINE NEGATIVE (NEGATIVE); LEUKOCYTE ESTERASE ,URINE 500 Leu/uL (NEGATIVE); NITRATE,URINE NEGATIVE (NEGATIVE); OCCULT BLOOD,URINE MODERATE (NEGATIVE); PROTEIN,URINE 100 mg/dL (NEGATIVE); UROBILINOGEN,URINE 0.2 mg/dL (0.2-1.0)
[2024-11-16 06:41] LABS: ADD UA MICROSCOPIC YES
[2024-11-16 06:42] LABS: COLOR,URINE YELLOW (YELLOW)
[2024-11-16 06:45] LABS: BACTERIA,URINE MOD /HPF (None Seen); UNCLASSIFIED CRYSTAL 8 /HPF (None Seen); WBC CLUMP MANY /HPF (0-1); WBC,URINE TNTC /HPF (0-1); YEAST,URINE BUDDING MANY /HPF (None Seen)
[2024-11-16] MEDS ORDERED: NITR100C4 PO (06:52)
[2024-11-16] MEDS ORDERED: PRED20TA3 PO (06:52)
== END 2024-11-16 07:04 ==
LOC: EDH 03:49
DX: M51.17 Intervertebral disc disorders with radiculopathy, lumbosacral region (principal); N39.0 Urinary tract infection, site not specified; E11.9 Type 2 diabetes mellitus without complications; E78.00 Pure hypercholesterolemia, unspecified; K21.9 Gastro-esophageal reflux disease without esophagitis; Z79.82 Long term (current) use of aspirin; Z79.84 Long term (current) use of oral hypoglycemic drugs; Z79.899 Other long term (current) drug therapy; Z88.5 Allergy status to narcotic agent; Z90.710 Acquired absence of both cervix and uterus
CPT/HCPCS: 99284; 96374; 96375; 80048; 85025; 87086 ×2; 87186; 81001; 36415; J1885; J1171; J2405